=== PATIENT | female | born 1985 | race Caucasian/White ===

== ENCOUNTER 2018-05-28 10:31 | Emergency (ER) | payer SELFPAY ==
[2018-05-28] MEDS ORDERED: MEPERIDINE HCL 50 MG/ML AMP ONE (10:47)
[2018-05-28] MEDS ORDERED: NA CHLORIDE 0.9% 1,000 ML ONE (10:47)
[2018-05-28] MEDS ORDERED: METOCLOPRAMIDE 10 MG/2mL INJ ONE (10:47)
--- NOTE | 2018-05-28 11:05 | RAD REPORT ---
EXAM DESCRIPTION: CT - Head Brain Wo Cont - 05/28/2018 10:55 am CLINICAL HISTORY: HEADACHE COMPARISON: No comparisons TECHNIQUE: All CT scans are performed using dose optimization technique as appropriate and may inclu de automated exposure control or mA/KV adjustment according to patient size. FINDINGS: No intracranial hemorrhage, hydrocephalus or extra-axial fluid collection.No areas of brai n edema or evidence of midline shift. The paranasal sinuses and mastoids are clear. The calvarium is intact. IMPRESSION: No acute intracranial abnormality.
[2018-05-28] MEDS ORDERED: DEXAMETHASONE 10 MG/ML VIAL ONE (11:39)
[2018-05-28] MEDS ORDERED: KETOROLAC 30 MG/ML INJ ONE (11:40)
[2018-05-28] MEDS ORDERED: MORPHINE 4 MG/ML SYR ONE (12:10)
--- NOTE | 2018-05-28 13:14 | ER ---
Nurse's Notes [facility] Name: Kylie Loomis Age: 32 yrs Sex: Female : 1985 Arrival Date: 05/28/2018 Time: 10:32 Bed 6 Private MD: Diagnosis: Migraine Presentation: 05/28 10:32 Presenting complaint: EMS states: MIGRAINE HEADACHE SINCE 0200. Transition of care: bp patient was not received from another setting of care. Onset of symptoms was May 28, 2018 at 02:00. Risk Assessment: Do you want to hurt yourself or someone else? Patient reports no desire to harm self or others. Initial Sepsis Screen: Does the patient meet any 2 criteria? HR > 90 bpm. Does the patient have a suspected source of infection? No. Patient's initial sepsis screen is negative. Care prior to arrival: Glucose check: 61. 10:32 Method Of Arrival: EMS: [facility] bp 10:32 Acuity: EDY 4 bp Triage Assessment: 10:34 Headache History: The patient has had previous headaches and this one is similar to bp previous episodes. General: Appears distressed, uncomfortable, obese, Behavior is cooperative, appropriate for age, crying. Pain: Complains of pain in head Pain currently is 10 out of 10 on a pain scale. Pain began 0200 Also complains of nausea, photophobia. EENT: No deficits noted. No signs and/or symptoms were reported regarding the EENT system. Neuro: Level of Consciousness is awake, alert, obeys commands, Oriented to person, place, time, situation, Appropriate for age. Cardiovascular: No deficits noted. Respiratory: Airway is patent Respiratory effort is even, unlabored, Respiratory pattern is regular, symmetrical. GI: No signs and/or symptoms were reported involving the gastrointestinal system. : No signs and/or symptoms were reported regarding the genitourinary system. Derm: No deficits noted. Musculoskeletal: Circulation, motion, and sensation intact. Range of motion: intact in all extremities. 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 - Social history:: Smoking status: Patient/guardian denies using tobacco. - Ebola Screening: : Patient negative for fever greater than or equal to 101.5 degrees Fahrenheit, and additional compatible Ebola Virus Disease symptoms Patient denies exposure to infectious person Patient denies travel to an Ebola-affected area in the 21 days before illness onset No symptoms or risks identified at this time. - Family history:: not pertinent. - Hospitalizations: : No recent hospitalization is reported. Screenin:38 Abuse screen: Denies threats or abuse. Denies injuries from another. Nutritional bp screening: No deficits noted. Tuberculosis screening: No symptoms or risk factors identified. Fall Risk None identified. Assessment: 10:37 General: 32YO WF P/W MIGRAINE, SAME H/O MIGRAINES. SEE TRIAGE NOTE. Pain: Complains bp of pain in head Pain currently is 10 out of 10 on a pain scale. 11:20 Reassessment: ALL CURRENT ORDERS COMPLETED, VS STABLE ON MONITOR. bp 12:00 Reassessment: PT REMAINS TEARFUL, MD NOTIFIED. MEDS ORDERED AND GIVEN. DISPO PENDING bp PAIN CONTROL. 12:59 Reassessment: ALL CURRENT ORDERS COMPLETED, DISPO PENDING. bp 13:45 Reassessment: PT D/C HOME AMBULATORY WITH FAMILY, DX WITH MIGRAINE. bp Vital Signs: 10:34 BP 139 / 104; Pulse 113; Resp 24; Temp 97.9; Pulse Ox 100% ; Weight 72.57 kg; Height 5 bp ft. (152.40 cm); 11:19 BP 149 / 96; Pulse 97; Resp 20; Pulse Ox 100% ; bp 11:37 BP 128 / 88; Pulse 96; Resp 20; Pulse Ox 100% ; bp 12:07 BP 125 / 86; Pulse 84; Resp 16; Pulse Ox 98% ; bp 12:58 BP 117 / 85; Pulse 78; Resp 16; Pulse Ox 100% ; bp 13:30 BP 130 / 87; Pulse 73; Resp 14; Pulse Ox 99% ; bp 10:34 Body Mass Index 31.25 (72.57 kg, 152.40 cm) bp Clint Coma Score: 13:13 Eye Response: spontaneous(4). Verbal Response: oriented(5). Motor Response: obeys rn commands(6). Total: 15. ED Course: 10:32 Patient arrived in ED. bp 10:33 Triage completed. bp 10:33 Timmy Barton MD is Attending Physician. rn 10:34 Arm band placed on right wrist. bp 10:38 Zenon Blanco, RN is Primary Nurse. bp 10:38 Patient has correct armband on for positive identification. Bed in low position. Call bp light in reach. Side rails up X2. 10:42 Inserted saline lock: 20 gauge in right antecubital area, using aseptic technique. 3 10:54 CT Head Brain wo Cont In Process Unspecified. EDMS 13:45 No provider procedures requiring assistance completed. IV discontinued, intact, bp bleeding controlled, No redness/swelling at site. Pressure dressing applied. Administered Medications: 10:46 Drug: Reglan 10 mg Route: IVP; Site: right antecubital; bp 11:37 Follow up: Response: No adverse reaction bp 10:46 Drug: Demerol 50 mg Route: IVP; Site: right antecubital; bp 11:37 Follow up: Response: No adverse reaction bp 10:46 Drug: NS 0.9% 1000 ml Route: IV; Rate: 1000 ml; Site: right antecubital; bp 13:46 Follow up: IV Status: Completed infusion; IV Intake: 1000ml bp 11:36 Drug: TORadol 30 mg Route: IVP; Site: right antecubital; bp 12:07 Follow up: Response: No change in condition bp 11:36 Drug: Decadron - Dexamethasone 10 mg Route: IVP; Site: right antecubital; bp 12:07 Follow up: Response: No change in condition bp 12:06 Drug: morphine 4 mg Route: IVP; Site: right antecubital; bp 13:47 Follow up: Response: Marked relief of symptoms; Pain is decreased bp Intake: 13:46 IV: 1000ml; Total: 1000ml. bp Outcome: 13:14 Discharge ordered by . rn 13:46 Discharged to home ambulatory, with family. bp 13:46 Condition: stable 13:46 Discharge instructions given to patient, Instructed on discharge instructions, follow up and referral plans. Demonstrated understanding of instructions, follow-up care. 13:47 Patient left the ED. bp Signatures: Dispatcher [employer] EDIL Timmy Barton MD MD rn Herrera, Deanna 3 Zenon Blanco, RN RN bp
--- NOTE | 2018-05-28 13:14 | EDPHYS ---
Physician Documentation [facility] Name: Kylie Loomis Age: 32 yrs Sex: Female : 1985 Arrival Date: 05/28/2018 Time: 10:32 Bed 6 Private MD: ED Physician Timmy Barton HPI: 05/28 10:35 This 32 yrs old Female presents to ER via EMS with complaints of Headache. rn 10:35 The patient complains of pain to the forehead. The patient describes the headache as rn aching. Onset: The symptoms/episode began/occurred this morning. Associated signs and symptoms: Pertinent positives: nausea, vomiting, Pertinent negatives: altered mental status, fever, neck stiffness, vision changes, vision loss, weakness, vertigo. Severity of symptoms: At its worst the pain was moderate, "similar to past headaches". Headache History: The patient has had previous headaches and this one is similar to previous episodes. The patient has experienced similar episodes in the past. Reports hx of migraines since 8 years old, this one began this AM, not going away with typical treatment, + sensitive to light and vomiting, no focal weakness or numbness, no trauma, reports identical to other headaches in past except that it is not improving. . 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 - Social history:: Smoking status: Patient/guardian denies using tobacco. - Ebola Screening: : Patient negative for fever greater than or equal to 101.5 degrees Fahrenheit, and additional compatible Ebola Virus Disease symptoms Patient denies exposure to infectious person Patient denies travel to an Ebola-affected area in the 21 days before illness onset No symptoms or risks identified at this time. - Family history:: not pertinent. - Hospitalizations: : No recent hospitalization is reported. ROS: 10:35 Constitutional: Negative for fever, chills, and weight loss, Eyes: Negative for injury, rn pain, redness, and discharge, Neck: Negative for injury, pain, and swelling, Cardiovascular: Negative for chest pain, palpitations, and edema, Respiratory: Negative for shortness of breath, cough, wheezing, and pleuritic chest pain, Abdomen/GI: Negative for abdominal pain, diarrhea, and constipation, MS/Extremity: Negative for injury and deformity, Skin: Negative for injury, rash, and discoloration, Neuro: Negative for weakness, numbness, tingling, and seizure Exam: 10:35 Constitutional: This is a well developed, well nourished patient who is awake, alert, rn crying Head/Face: Normocephalic, atraumatic. Eyes: Pupils equal round and reactive to light, extra-ocular motions intact. Lids and lashes normal. Conjunctiva and sclera are non-icteric and not injected. Cornea within normal limits. Periorbital areas with no swelling, redness, or edema. ENT: MMM Neck: Trachea midline, no thyromegaly or masses palpated, and no cervical lymphadenopathy. Supple, full range of motion without nuchal rigidity, or vertebral point tenderness. No Meningismus. Skin: Warm, dry with normal turgor. Normal color with no rashes, no lesions, and no evidence of cellulitis. MS/ Extremity: Pulses equal, no cyanosis. Neurovascular intact. Full, normal range of motion. Equal circumference. Neuro: Awake and alert, GCS 15, oriented to person, place, time, and situation. Cranial nerves II-XII grossly intact. Motor strength 5/5 in all extremities. Sensory grossly intact. Cerebellar exam normal. Normal gait. Vital Signs: 10:34 BP 139 / 104; Pulse 113; Resp 24; Temp 97.9; Pulse Ox 100% ; Weight 72.57 kg; Height 5 bp ft. (152.40 cm); 11:19 BP 149 / 96; Pulse 97; Resp 20; Pulse Ox 100% ; bp 11:37 BP 128 / 88; Pulse 96; Resp 20; Pulse Ox 100% ; bp 12:07 BP 125 / 86; Pulse 84; Resp 16; Pulse Ox 98% ; bp 12:58 BP 117 / 85; Pulse 78; Resp 16; Pulse Ox 100% ; bp 13:30 BP 130 / 87; Pulse 73; Resp 14; Pulse Ox 99% ; bp 10:34 Body Mass Index 31.25 (72.57 kg, 152.40 cm) bp Clint Coma Score: 13:13 Eye Response: spontaneous(4). Verbal Response: oriented(5). Motor Response: obeys rn commands(6). Total: 15. MDM: 10:33 Patient medically screened. rn 13:13 Differential diagnosis: cluster headache, migraine, tension headache, vasomotor rn headache. Data reviewed: vital signs, nurses notes, radiologic studies, CT scan, and as a result, I will discharge patient. Counseling: I had a detailed discussion with the patient and/or guardian regarding: the historical points, exam findings, and any diagnostic results supporting the discharge/admit diagnosis, radiology results, the need for outpatient follow up, to return to the emergency department if symptoms worsen or persist or if there are any questions or concerns that arise at home. Response to treatment: the patient's symptoms have markedly improved after treatment, and as a result, I will discharge patient. Special discussion: I discussed with the patient/guardian in detail that at this point there is no indication for admission to the hospital. It is understood, however, that if the symptoms persist or worsen the patient needs to return immediately for re-evaluation. Based on the history and exam findings, there is no indication for further emergent testing or inpatient evaluation. I discussed with the patient/guardian the need to see the neurologist for further evaluation of the symptoms. 05/28 10:34 Order name: CT Head Brain wo Cont; Complete Time: 11:09 rn 05/28 10:34 Order name: IV Start; Complete Time: 10:41 rn Administered Medications: 10:46 Drug: Reglan 10 mg Route: IVP; Site: right antecubital; bp 11:37 Follow up: Response: No adverse reaction bp 10:46 Drug: Demerol 50 mg Route: IVP; Site: right antecubital; bp 11:37 Follow up: Response: No adverse reaction bp 10:46 Drug: NS 0.9% 1000 ml Route: IV; Rate: 1000 ml; Site: right antecubital; bp 13:46 Follow up: IV Status: Completed infusion; IV Intake: 1000ml bp 11:36 Drug: TORadol 30 mg Route: IVP; Site: right antecubital; bp 12:07 Follow up: Response: No change in condition bp 11:36 Drug: Decadron - Dexamethasone 10 mg Route: IVP; Site: right antecubital; bp 12:07 Follow up: Response: No change in condition bp 12:06 Drug: morphine 4 mg Route: IVP; Site: right antecubital; bp 13:47 Follow up: Response: Marked relief of symptoms; Pain is decreased bp Disposition: 05/28/18 13:14 Discharged to Home. Impression: Migraine. - Condition is Stable. - Discharge Instructions: Migraine Headache. - Medication Reconciliation Form, Thank You Letter, Antibiotic Education, Prescription Opioid Use form. - Follow up: Private Physician; When: As needed; Reason: Recheck today's complaints, Re-evaluation by your physician. - Problem is an acute exacerbation. - Symptoms have improved. Signatures: Dispatcher [employer] EDMS Timmy Barton MD MD rn Zenon Blanco RN RN bp Corrections: (The following items were deleted from the chart) 13:47 13:14 05/28/2018 13:14 Discharged to Home. Impression: Migraine. Condition is Stable. bp Forms are Medication Reconciliation Form, Thank You Letter, Antibiotic Education, Prescription Opioid Use. Follow up: Private Physician; When: As needed; Reason: Recheck today's complaints, Re-evaluation by your physician. Problem is an acute exacerbation. Symptoms have improved. rn
[2018-05-28 13:52] VITALS: TEMP 97.9
[2018-05-28 13:57] VITALS: BP 130/87; O2SAT 99
== END 2018-05-28 13:47 | disposition home or self-care (01) ==
LOC: ER 10:31
DX: G43.909 Migraine, unspecified, not intractable, without status migrainosus (principal); I10 Essential (primary) hypertension; Z88.0 Allergy status to penicillin
CPT/HCPCS: 70450; 96361; 96374; 96375; 99284; J1100; J2175; J2765; J7030

== ENCOUNTER 2019-12-11 17:49 | Emergency (ER) | payer SELFPAY ==
[2019-12-11] MEDS ORDERED: ONDANSETRON 4 MG/2 ML VIAL ONE (18:39)
[2019-12-11] MEDS ORDERED: MORPHINE 4 MG/ML SYR ONE (18:39)
[2019-12-11] MEDS ORDERED: NA CHLORIDE 0.9% 1,000 ML ONE (18:39)
[2019-12-11 18:50] LABS: ALT/SGPT 16 U/L (12-78); AST/SGOT 14 U/L (15-37); Albumin 3.2 g/dL (3.4-5.0); Alkaline Phosphatase 107 U/L (45-117); BUN Blood Urea Nitrogen 14 mg/dL (7-18); Bicarbonate 25 mmol/L (21-32); Bilirubin Direct < 0.1 mg/dL (0-0.2); Bilirubin Total 0.3 mg/dL (0.2-1.0); Glucose Level 95 mg/dL (74-106); Lipase 93 U/L (73-393); Potassium 4.1 mmol/L (3.5-5.1); Protein, Total 7.5 g/dL (6.4-8.2); Sodium Level 140 mmol/L (136-145)
[2019-12-11 19:08] LABS: Absolute Lymphocytes (CBC) 1.5 K/uL (0.7-4.9); Basophils % 0.5 % (0-1.3); Hematocrit 41.6 % (36.0-45.0); Lymphocytes % 22.8 % (15.3-44.8); MPV 8.1 fL (7.6-11.3)
--- NOTE | 2019-12-11 19:26 | RAD REPORT ---
EXAM DESCRIPTION: CTAbdomen Pelvis W Contrast - 12/11/2019 7:21 pm CLINICAL HISTORY: Abdominal pain. ABD PAIN COMPARISON: Abdomen Pelvis W Contrast dated 09/25/2017 TECHNIQUE: Biphasic CT imaging of the abdomen and pelvis was performed with 100 ml non-ionic IV cont rast. All CT scans are performed using dose optimization technique as appropriate and may include automated exposure control or mA/KV adjustment according to patient size. FINDINGS: The lung bases are clear. The liver, spleen, pancreas, adrenal glands and kidneys are within normal limits. No bowel obstruction, free air, free fluid or abscess. The appendix is normal. No evidence of signi ficant lymphadenopathy. No suspicious bony findings. 3.6 cm right ovarian cyst. IMPRESSION: No acute intra-abdominal or pelvic finding. 3.6 cm right ovarian cyst.
[2019-12-11 20:04] LABS: Urine Blood 2+ (NEG); Urine Glucose NEGATIVE (NEG); Urine Protein NEGATIVE (NEG)
[2019-12-11] MEDS ORDERED: KETOROLAC 30 MG/ML INJ ONE (20:12)
[2019-12-11 20:40] LABS: Urine Bacteria LOADED /HPF (<20); Urine Culture Reflex Order REFLEXED; Urine RBC <5 /HPF (NONE SEEN)
--- NOTE | 2019-12-11 20:42 | ER ---
Nurse's Notes [facility] Name: Kylie Loomis Age: 34 yrs Sex: Female : 1985 Arrival Date: 12/11/2019 Time: 17:51 Bed 20 Private MD: Diagnosis: Unspecified ovarian cysts;Urinary tract infection, site not specified Presentation: 12/10 17:56 Chief complaint: Patient states: pain started umbilical area and now has radiated to sv the RLQ pain x 3 days. c/o n/v. Coronavirus screen: Patient reports a cough. Patient reports shortness of breath or difficulty breathing. Patient reports a measured and/or subjective temperature greater than 100.4F. Patient denies travel on a cruise ship or to a country the [facility] currently lists as an affected area. Patient denies contact with known and/or suspected case of COVID-19. Ebola Screen: No symptoms or risks identified at this time. Risk Assessment: Do you want to hurt yourself or someone else? Patient reports no desire to harm self or others. Onset of symptoms was December 08, 2019. 17:56 Method Of Arrival: Ambulatory sv 17:56 Acuity: EDY 2 sv 17:58 Initial Sepsis Screen: Does the patient meet any 2 criteria? RR > 20 per min. HR > 90 sv bpm. Does the patient have a suspected source of infection? Yes: Acute abdominal pain. Triage Assessment: 17:58 General: Appears in no apparent distress. uncomfortable, Behavior is calm, cooperative, sv appropriate for age. Pain: Complains of pain in umbilical area and right lower quadrant. Neuro: Level of Consciousness is awake, alert, obeys commands, Gait is steady. Respiratory: Respiratory effort is even, unlabored. GI: Reports lower abdominal pain, nausea. 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 - Social history:: Smoking status: Patient denies any tobacco usage or history of. Screenin:15 Abuse screen: Denies threats or abuse. Denies injuries from another. Nutritional ca1 screening: No deficits noted. Tuberculosis screening: No symptoms or risk factors identified. Fall Risk IV access (20 points). Assessment: 18:15 General: Appears in no apparent distress. comfortable, Behavior is calm, cooperative, ca1 appropriate for age. Pain: Complains of pain in right lower quadrant Pain does not radiate. Pain currently is 8 out of 10 on a pain scale. Pain began 2-3 days ago. Neuro: Level of Consciousness is awake, alert, obeys commands, Oriented to person, place, time, situation, Appropriate for age. Cardiovascular: Heart tones S1 S2 present Capillary refill < 3 seconds Patient's skin is warm and dry. Respiratory: Airway is patent Respiratory effort is even, unlabored, Respiratory pattern is regular, symmetrical, Breath sounds are clear bilaterally. GI: Abdomen is round non-distended, Bowel sounds present X 4 quads. Abd is soft X 4 quads Abdomen is tender to palpation in right upper quadrant and right lower quadrant. GI: Reports nausea. : No signs and/or symptoms were reported regarding the genitourinary system. EENT: No signs and/or symptoms were reported regarding the EENT system. Derm: Skin is intact, is healthy with good turgor, Skin is pink, warm \T\ dry. Musculoskeletal: Circulation, motion, and sensation intact. Capillary refill < 3 seconds. 20:27 Reassessment: Patient states feeling better. Patient states symptoms have improved. rv Neuro: Level of Consciousness is awake, alert, obeys commands, Oriented to person, place, time, situation. GI: Abdomen is round non-distended, Reports symptoms improved. Patient currently denies nausea. Vital Signs: 17:58 BP 160 / 124; Pulse 100; Resp 22; Temp 99.5; Pulse Ox 100% ; Weight 74.84 kg; Height 5 sv ft. 0 in. (152.40 cm); 18:31 BP 157 / 106; Pulse 99; Resp 17; Pulse Ox 97% on R/A; ca1 19:00 BP 145 / 115; Pulse 94; Resp 16 S; Pulse Ox 99% on R/A; ca1 20:05 BP 158 / 111; Pulse 84; Resp 16; Pulse Ox 99% on R/A; Pain 10/10; rv 20:25 BP 136 / 98; Pulse 83; Resp 17; Pulse Ox 97% on R/A; rv 17:58 Body Mass Index 32.22 (74.84 kg, 152.40 cm) sv ED Course: 17:51 Patient arrived in ED. ag5 17:54 Susan Handy FNP-C [facility]. kb 17:54 Edward Gaston MD is Attending Physician. kb 17:56 Arm band placed on. sv 17:58 Triage completed. sv 18:09 Brianna Hill, RN is Primary Nurse. ca1 18:15 Patient has correct armband on for positive identification. Bed in low position. Call ca1 light in reach. Side rails up X 1. Pulse ox on. NIBP on. Warm blanket given. 18:26 No provider procedures requiring assistance completed. Initial lab(s) drawn, by co, ca1 sent to lab. Inserted saline lock: 20 gauge in right antecubital area, using aseptic technique. Blood collected. 19:10 Report given to LEXIE Alex. ca1 19:21 CT Abd/Pelvis - IV Contrast Only In Process Unspecified. EDMS 20:45 IV discontinued, intact, bleeding controlled, No redness/swelling at site. Pressure rv dressing applied. Administered Medications: 18:30 Drug: NS 0.9% 1000 ml Route: IV; Rate: 1000 ml; Site: right antecubital; ca1 20:09 Follow up: Response: No adverse reaction; IV Status: Completed infusion ca1 18:31 Drug: Zofran (Ondansetron) 4 mg Route: IVP; Site: right antecubital; ca1 20:09 Follow up: Response: No adverse reaction; Nausea is decreased ca1 18:35 Drug: morphine 4 mg {Note: RASS - 0.} Route: IVP; Site: right antecubital; ca1 20:09 Follow up: Response: No adverse reaction; Pain is unchanged, physician notified; RASS: ca1 Alert and Calm (0) 20:08 Drug: TORadol - Ketorolac 15 mg Route: IVP; Site: right antecubital; ca1 20:27 Follow up: Response: No adverse reaction; Marked relief of symptoms; Pain is decreased rv 21:08 Drug: Macrobid 100 mg Route: PO; rv 21:09 Follow up: Response: Medication administered at discharge. rv Outcome: 20:28 Discharged to home ambulatory. rv 20:28 Condition: improved 20:41 Discharge ordered by . kb 21:09 Discharge instructions given to patient, Instructed on discharge instructions, follow rv up and referral plans. medication usage, Demonstrated understanding of instructions, follow-up care, medications, Prescriptions given X 3. 21:10 Patient left the ED. rv Addendum: 12/14/2019 09:15 Addendum: Culture Results: Positive urine culture. No further action required. Bacteria s s sensitive to prescribed antibiotic. Signatures: Dispatcher [employer] EDMS Susan Handy, DI-Inocencio SALES PERSON-Monica Daily RN RN Marysol Burgos RN RN Cem Rudd RN RN Brianna Hill RN RN [facility] Chun Cancino ag5 Corrections: (The following items were deleted from the chart) 12/10 18:01 17:56 Acuity: EDY 3 [facility] 18:24 17:56 Coronavirus screen: Surgical mask placed on patient. Patient moved to private room, placed in contact and droplet isolation with eye protection until further assessment. Patient reports a cough. Patient reports shortness of breath or difficulty breathing. Patient reports a measured and/or subjective temperature greater than 100.4F. Patient denies travel on a cruise ship or to a country the [facility] currently lists as an affected area. Patient denies contact with known and/or suspected case of COVID-19. sv
--- NOTE | 2019-12-11 20:42 | EDPHYS ---
Physician Documentation [facility] Name: Kylie Loomis Age: 34 yrs Sex: Female : 1985 Arrival Date: 12/11/2019 Time: 17:51 Bed 20 Private MD: ED Physician Edward Gaston HPI: 12/10 18:54 This 34 yrs old Female presents to ER via Ambulatory with complaints of kb Abdominal Pain. 18:54 The patient presents with abdominal pain right lower quadrant. Onset: The kb symptoms/episode began/occurred 3 day(s) ago. The symptoms do not radiate. Associated signs and symptoms: Pertinent positives: nausea and vomiting, fever, Pertinent negatives: anorexia, constipation, diarrhea. The symptoms are described as constant. Modifying factors: The symptoms are alleviated by nothing, the symptoms are aggravated by pressure. Severity of pain: At its worst the pain was moderate in the emergency department the pain is unchanged. The patient has not experienced similar symptoms in the past. The patient has not recently seen a physician. Pt reports abd pain that started at umbilicus and moved to RLQ. States pain started 3 days ago. Reports nausea, vomiting and fever. 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 - Social history:: Smoking status: Patient denies any tobacco usage or history of. ROS: 18:50 Neck: Negative for injury, pain, and swelling, Cardiovascular: Negative for chest pain, kb palpitations, and edema, Respiratory: Negative for shortness of breath, cough, wheezing, and pleuritic chest pain, Back: Negative for injury and pain, MS/Extremity: Negative for injury and deformity, Skin: Negative for injury, rash, and discoloration, Neuro: Negative for headache, weakness, numbness, tingling, and seizure. 18:50 Constitutional: Positive for fever, Negative for body aches, chills, fatigue, malaise, poor PO intake, weight loss. 18:50 Abdomen/GI: Positive for abdominal pain, nausea and vomiting, Negative for diarrhea, constipation, abdominal cramps, abdominal distension, anorexia. Exam: 18:50 Constitutional: This is a well developed, well nourished patient who is awake, alert, kb and in no acute distress. Head/Face: Normocephalic, atraumatic. Neck: Trachea midline, no thyromegaly or masses palpated, and no cervical lymphadenopathy. Supple, full range of motion without nuchal rigidity, or vertebral point tenderness. No Meningismus. Chest/axilla: Normal chest wall appearance and motion. Nontender with no deformity. No lesions are appreciated. Cardiovascular: Regular rate and rhythm with a normal S1 and S2. No gallops, murmurs, or rubs. Normal PMI, no JVD. No pulse deficits. Respiratory: Lungs have equal breath sounds bilaterally, clear to auscultation and percussion. No rales, rhonchi or wheezes noted. No increased work of breathing, no retractions or nasal flaring. Back: No spinal tenderness. No costovertebral tenderness. Full range of motion. Skin: Warm, dry with normal turgor. Normal color with no rashes, no lesions, and no evidence of cellulitis. MS/ Extremity: Pulses equal, no cyanosis. Neurovascular intact. Full, normal range of motion. Neuro: Awake and alert, GCS 15, oriented to person, place, time, and situation. Cranial nerves II-XII grossly intact. Motor strength 5/5 in all extremities. Sensory grossly intact. Cerebellar exam normal. Normal gait. 18:50 Abdomen/GI: Inspection: abdomen appears normal, Bowel sounds: normal, in all quadrants, Palpation: soft, in all quadrants, moderate abdominal tenderness, in the right upper quadrant and right lower quadrant. Vital Signs: 17:58 BP 160 / 124; Pulse 100; Resp 22; Temp 99.5; Pulse Ox 100% ; Weight 74.84 kg; Height 5 sv ft. 0 in. (152.40 cm); 18:31 BP 157 / 106; Pulse 99; Resp 17; Pulse Ox 97% on R/A; ca1 19:00 BP 145 / 115; Pulse 94; Resp 16 S; Pulse Ox 99% on R/A; ca1 20:05 BP 158 / 111; Pulse 84; Resp 16; Pulse Ox 99% on R/A; Pain 10/10; rv 20:25 BP 136 / 98; Pulse 83; Resp 17; Pulse Ox 97% on R/A; rv 17:58 Body Mass Index 32.22 (74.84 kg, 152.40 cm) sv MDM: 18:13 Patient medically screened. tab 18:49 Data reviewed: vital signs, nurses notes. Data interpreted: Pulse oximetry: on room air kb is 100 %. Interpretation: normal. 19:41 Counseling: I had a detailed discussion with the patient and/or guardian regarding: the kb historical points, exam findings, and any diagnostic results supporting the discharge/admit diagnosis, lab results, radiology results, the need for outpatient follow up, an OB/Gyne specialist, to return to the emergency department if symptoms worsen or persist or if there are any questions or concerns that arise at home. 12/10 18:16 Order name: Basic Metabolic Panel; Complete Time: 18:56 kb 12/10 18:16 Order name: CBC with Diff; Complete Time: 19:41 kb 12/10 18:16 Order name: Hepatic Function; Complete Time: 18:56 kb 12/10 18:16 Order name: Lipase; Complete Time: 18:56 kb 12/10 19:46 Order name: Urine Microscopic Only kb 12/10 19:47 Order name: Urine Microscopic Only; Complete Time: 20:41 EDMS 12/10 18:21 Order name: CT Abd/Pelvis - IV Contrast Only; Complete Time: 19:34 kb 12/10 19:47 Order name: Urine --Ancillary (enter results); Complete Time: 20:08 kb 12/10 19:47 Order name: Urine Dipstick--Ancillary (enter results); Complete Time: 20:08 kb 12/10 20:42 Order name: Urine Culture EDMN 12/10 18:16 Order name: IV Saline Lock; Complete Time: 18:27 kb 12/10 18:16 Order name: Labs collected and sent; Complete Time: 18:27 kb 12/10 18:21 Order name: Urine Dipstick-Ancillary (obtain specimen); Complete Time: 20:10 kb 12/10 19:36 Order name: Vital Signs; Complete Time: 20:05 kb Administered Medications: 18:30 Drug: NS 0.9% 1000 ml Route: IV; Rate: 1000 ml; Site: right antecubital; ca1 20:09 Follow up: Response: No adverse reaction; IV Status: Completed infusion ca1 18:31 Drug: Zofran (Ondansetron) 4 mg Route: IVP; Site: right antecubital; ca1 20:09 Follow up: Response: No adverse reaction; Nausea is decreased ca1 18:35 Drug: morphine 4 mg {Note: RASS - 0.} Route: IVP; Site: right antecubital; ca1 20:09 Follow up: Response: No adverse reaction; Pain is unchanged, physician notified; RASS: ca1 Alert and Calm (0) 20:08 Drug: TORadol - Ketorolac 15 mg Route: IVP; Site: right antecubital; ca1 20:27 Follow up: Response: No adverse reaction; Marked relief of symptoms; Pain is decreased rv 21:08 Drug: Macrobid 100 mg Route: PO; rv 21:09 Follow up: Response: Medication administered at discharge. rv Disposition: 12/11 14:31 Co-signature as Attending Physician, Edward Gaston MD I agree with the assessment and tab plan of care. Disposition: 12/11/19 20:41 Discharged to Home. Impression: Unspecified ovarian cysts, Urinary tract infection, site not specified. - Condition is Stable. - Discharge Instructions: Urinary Tract Infection, Adult, [id number], Ovarian Cyst, [id number]. - Prescriptions for Zofran 4 mg Oral Tablet - take 1 tablet by ORAL route every 6 hours As needed; 20 tablet. Diclofenac Sodium 75 mg Oral Tablet, Delayed Release (E.C.) - take 1 tablet by ORAL route 2 times per day As needed; 30 tablet. Macrobid 100 mg Oral Capsule - take 1 capsule by ORAL route every 12 hours for 10 days; 20 capsule. - Medication Reconciliation Form, Thank You Letter, Antibiotic Education, Prescription Opioid Use form. - Follow up: Emergency Department; When: As needed; Reason: Worsening of condition. Follow up: Private Physician; When: 2 - 3 days; Reason: Recheck today's complaints, Continuance of care, Re-evaluation by your physician. Signatures: Dispatcher [employer] Susan Bradshaw FNP-C FNP-Ckb Verde, Stephanie, RN Edward Simmons MD MD cha Vicente, Ronaldo RN RN rv AcobBrianna RN RN ca1 Corrections: (The following items were deleted from the chart) 12/10 21:10 20:41 12/11/2019 20:41 Discharged to Home. Impression: Unspecified ovarian cysts; rv Urinary tract infection, site not specified. Condition is Stable. Discharge Instructions: Ovarian Cyst, [id number]. Prescriptions for Zofran 4 mg Oral Tablet - take 1 tablet by ORAL route every 6 hours As needed; 20 tablet, Diclofenac Sodium 75 mg Oral Tablet, Delayed Release (E.C.) - take 1 tablet by ORAL route 2 times per day As needed; 30 tablet. and Forms are Medication Reconciliation Form, Thank You Letter, Antibiotic Education, Prescription Opioid Use. Follow up: Emergency Department; When: As needed; Reason: Worsening of condition. Follow up: Private Physician; When: 2 - 3 days; Reason: Recheck today's complaints, Continuance of care, Re-evaluation by your physician. kb
[2019-12-11] MEDS ORDERED: NITROFURAN MACRO 100 MG CAP PO ONE (20:54)
[2019-12-11 22:13] VITALS: TEMP 99.5
[2019-12-11 22:19] VITALS: BP 136/98; O2SAT 97
== END 2019-12-11 21:10 | disposition home or self-care (01) ==
LOC: ER 17:49
DX: N39.0 Urinary tract infection, site not specified (principal); N83.209 Unspecified ovarian cyst, unspecified side; I10 Essential (primary) hypertension; Z88.0 Allergy status to penicillin
CPT/HCPCS: 36415; 74177; 80048; 80076; 81003; 81015; 81025; 83690; 85025; 87077; 87086; 87088; 87186; 96361; 96374; 96375; 99284; J2405; J7030; Q9967